=== PATIENT | female | born 1950 | race Caucasian/White ===

== ENCOUNTER 2016-07-29 22:02 | Emergency (ER) | payer OTHER ==
[~2016-07-29] VITALS: Ht 162.6 cm; Wt 95.3 kg
[2016-07-29] MEDS ORDERED: METOPROLOL TAR100 M1 PO (22:05)
[2016-07-29] MEDS ORDERED: ENALAPRIL MALEA20 M1 PO (22:06)
[2016-07-29] MEDS ORDERED: ATORVASTATIN CA40 M1 PO (22:06)
[2016-07-29] MEDS ORDERED: ATORVASTATIN CA10 M1 PO (22:06)
--- NOTE | 2016-07-29 22:20 | ED CARDIAC/CP/PALPITATIONS ---
History of Present Illness General Chief Complaint: Chest Pain Stated Complaint: CHEST PAIN Source: patient, family, old records Exam Limitations: language barrier Vital Signs & Intake/Output Vital Signs & Intake/Output Vital Signs Date Time Temp Pulse Resp B/P Pulse O2 O2 Flow FiO2 Ox Delivery Rate 07/30 0318 97.2 75 18 137/89 97 Room Air 07/30 0059 97.3 76 18 139/90 97 Room Air ED Intake and Output 07/30 0000 07/29 1200 Intake Total Output Total Balance Patient 210 lb Weight Allergies Coded Allergies: Fish Containing Products (FACIAL SWELLING 07/29/16) Reconcile Medications Atorvastatin Calcium 10 MG TABLET 1 TAB PO DAILY BP (Reported) Atorvastatin Calcium 40 MG TABLET 1 TAB PO DAILY CHOLESTEROL (Reported) Enalapril Maleate 20 MG TABLET 1 TAB PO DAILY BP (Reported) Metoprolol Tartrate 100 MG TABLET 1 TAB PO DAILY HEART/BP (Reported) Triage Note: PT TO ED FOR INTERMITTENT CHEST PAIN AND L ARM TINGLING FOR TWO DAYS WELL SOB AT NIGHT WHILE SLEEPING FOR APPROX 6 MONTHS. PT REPORTING LYING DOWN SOMETIMES IMPROVES THE CHEST PAIN BUT UNABLE TO IDENTIFY IF WHAT MAKES PAIN WORSE. DENIES N/V/D, ONLY SOB AT NIGHT "WHEN SLEEPING".ALSO REPORTING INTERMITTENT DIZZINESS NOT ASSOCIATED WITH CP. Triage Nurses Notes Reviewed? yes HPI: Patient is a 65-year-old female presents complaining of intermittent chest pain minutes and resolved. Pain was a sharp sensation no exacerbating or alleviating factors. No known inciting factors. Pain is currently 0 out of 10, last episode was approximately 2 hours ago. Dyspnea with exertion for approximately 2 weeks. Left lower extremity swelling for the past 4 days. Left hand paresthesias intermittently 2 months (ANDRÉS ELENA) Past History Travel History Traveled to [place] past 21 day No Medical History Any Pertinent Medical History? see below for history Neurological: NONE EENT: NONE Cardiovascular: hypertension, HIGH CHOLESTEROL Respiratory: NONE Gastrointestinal: NONE Hepatic: NONE Renal: NONE Musculoskeletal: NONE Psychiatric: NONE Endocrine: NONE Blood Disorders: NONE Cancer(s): BREAST CA Psychosocial History Who do you live with Family Services at Home None What is your primary language Mexican Tobacco Use: Never used ETOH Use: denies use Illicit Drug Use: denies illicit drug use Family History Hx Contributory? Yes (BROTHER AND FATHER CAD) (ANDRÉS ELENA) Surgical History Surgical History: none (HENRY CUEVAS,EUSEBIO Phillips) Review of Systems Review of Systems Constitutional: Denies: chills, fever. EENTM: Reports: no symptoms. Respiratory: Denies: cough. Cardiovascular: Reports: see HPI. GI: Denies: abdominal pain, nausea, vomiting. Genitourinary: Reports: no symptoms. Musculoskeletal: Reports: no symptoms. Skin: Reports: no symptoms. Neurological/Psychological: Reports: no symptoms. Hematologic/Endocrine: Reports: no symptoms. Immunologic/Allergic: Reports: no symptoms. (ANDRÉS ELENA) Physical Exam Physical Exam General Appearance: well developed/nourished, alert, awake Head: atraumatic, normal appearance Eyes: Bilateral: normal appearance, PERRL, EOMI. Ears, Nose, Throat: normal pharynx, normal ENT inspection, hearing grossly normal Neck: normal inspection, supple, full range of motion Respiratory: normal breath sounds, chest non-tender, no respiratory distress, lungs clear Cardiovascular: regular rate/rhythm Peripheral Pulses: 2+ dorsalis pedis (R), 2+ dorsalis pedis (L) Gastrointestinal: soft, non-tender Back: normal inspection, normal range of motion Extremities: normal capillary refill, normal range of motion, NO CALF TENDERNESS. 1+ BILATERAL LOWER EXTREMITY EDEMA. Neurologic/Psych: no motor/sensory deficits, awake, alert, oriented x 3 Skin: intact, normal color, warm/dry Lymphatic: no anterior cervical pradeep (ANDRÉS ELENA) Core Measures ACS in differential dx? No Severe Sepsis Present: No Septic Shock Present: No (HENRY CUEVAS,EUSEBIO Phillips) Progress Differential Diagnosis: AMI, aortic dissection, CHF/pulm edema, costochondritis, myocarditis, pericarditis, pneumonia, pneumothorax, PSVT, pulmonary embolism, PUD/GERD, unstable angina, V-fib/V-Tach, dvt Plan of Care: Orders Procedure Date/time Status TROPONIN LEVEL 07/30 0200 Complete EKG 07/30 199 Active Laboratory Tests 07/30/16 0205: Troponin I < 0.[address] Fontana: obtain 2nd ekg and troponin to rule out ACS 07/29/2016 11:21:16 PM: Discussed results of labs and chest x-ray with the patient and her family member. Patient remained symptom free. Plan for repeat EKG and troponin. (ANDRÉS ELENA) Diagnostic Imaging: Viewed by Me: Radiology Read. Discussed w/RAD: Radiology Read. Radiology Impression: PATIENT: SARA WATKINS PRESENT AGE: 65 PATIENT ACCOUNT NO: [id number] : 49 LOCATION: [facility] ORDERING PHYSICIAN: ANDRÉS JACOBO SERVICE DATE: 07/29/16 EXAM TYPE: RAD - XRY-PORTABLE CHEST XRAY EXAMINATION: CHEST 1 VIEW CLINICAL INFORMATION: Chest pain. COMPARISON: 09/21/2012. TECHNIQUE: An AP view of the chest is provided. FINDINGS: The cardiac silhouette is not enlarged. The mediastinal and hilar contours are unremarkable. There are neither pleural effusions nor pneumothoraces. There are no consolidations. The osseous structures are unremarkable. IMPRESSION: No evidence for acute disease. DICTATED BY: CONSTANZA ARENAS MD DATE/TIME DICTATED:07/29/162251 CELL ASSEMBLY PINNER:[email or web address] DATE/TIME TRANSCRIBED:07/29/162251 CONFIDENTIAL, DO NOT COPY WITHOUT APPROPRIATE AUTHORIZATION. <Electronically signed in Other Vendor System> SIGNED BY: CONSTANZA ARENAS MD 07/29/161 Initial ED EKG: normal sinus rhythm 70 bpm normal axis, normal intervals, nonspecific ST/T-wave abnormalities, no acute changes from previous EKG Prior EKG: unchanged Rhythm Strip: normal sinus rhythm Hand-Off Endorsed To: EUSEBIO FONTANA MD Endorsed Time: 29 Pending: EKG, labs (ANDRÉS ELENA) Departure Departure Disposition: STILL A PATIENT Condition: Stable Clinical Impression Primary Impression: Chest pain Qualifiers: Chest pain type: unspecified Qualified Code: R07.9 - Chest pain, unspecified Referrals: KIMMY REVELES MD (PCP/Family) Additional Instructions: Follow up with Dr. Reveles this week for further evaluation. Call when the office opens for appointment. Return to the ER if chest pain worsening, breathing worsening or worsening of symptoms. Departure Forms: Customer Survey General Discharge Information (ANDRÉS ELENA) PA/UX ARCHITECT Co-Sign Statement Statement: ED Attending supervision documentation- [x] I saw and evaluated the patient. I have also reviewed all the pertinent lab results and diagnostic results. I agree with the findings and the plan of care as documented in the PA's/UX ARCHITECT's documentation. trop neg x 2, ekg benign x 2... pt safe for discharge and will follow up with card punching machine operator. [] I have reviewed the ED Record and agree with the PA's/UX ARCHITECT's documentation. [] Additions or exceptions (if any) to the PAs/UX ARCHITECT's note and plan are summarized below: [] (EUSEBIO FONTANA MD) Critical Care Note Critical Care Note Critical Care Time: non-applicable (EUSEBIO FONTANA MD) Statement: ED Attending supervision documentation- [x] I saw and evaluated the patient. I have also reviewed all the pertinent lab results and diagnostic results. I agree with the findings and the plan of care as documented in the PA's/UX ARCHITECT's documentation. trop neg x 2, ekg benign x 2... pt safe for discharge and will follow up with card punching machine operator. [] I have reviewed the ED Record and agree with the PA's/UX ARCHITECT's documentation. [] Additions or exceptions (if any) to the PAs/UX ARCHITECT's note and plan are summarized below: [] (HENRY CUEVAS,EUSEBIO Phillips) Critical Care Note Critical Care Note Critical Care Time: non-applicable (EUSEBIO FONTANA MD)
[2016-07-29 22:44] LABS: ABSOLUTE BASOPHIL COUNT 0.1 /CUMM (0.0-0.2); ABSOLUTE EOSINOPHIL COUNT 0.2 /CUMM (0.0-0.7); ABSOLUTE GRANULOCYTE CT 4.2 /CUMM (1.4-6.5); ABSOLUTE LYMPH COUNT 3.2 /CUMM (1.2-3.4); ABSOLUTE MONOCYTE COUNT 0.7 /CUMM (0.10-0.60); BASOPHIL % 0.8 % (0.0-2.0); EOSINOPHIL % 2.8 % (0-5); GRANULOCYTE % 50.4 % (42.2-75.2); HEMATOCRIT 43.7 % (37-47); MEAN CORPUSCULAR HGB 29.1 PG (27.0-31.0); MEAN CORPUSCULAR HGB CONC 33.3 G/DL (33.0-37.0); MEAN CORPUSCULAR VOLUME 87.4 FL (81.0-99.0); MEAN PLATELET VOLUME 7.2 FL (7.4-10.4); PLATELET COUNT 215 /CUMM (130-400); RBC DISTRIBUTION WIDTH 12.9 % (11.5-14.5); RED BLOOD CELL CT 4.99 /CUMM (4.20-5.40); WHITE BLOOD CELL COUNT 8.4 /CUMM (4.8-10.8)
--- NOTE | 2016-07-29 23:03 | RADIOLOGY REPORT ---
EXAMINATION: CHEST 1 VIEW CLINICAL INFORMATION: Chest pain. COMPARISON: 09/21/2012. TECHNIQUE: An AP view of the chest is provided. FINDINGS: The cardiac silhouette is not enlarged. The mediastinal and hilar contours are unremarkable. There are neither pleural effusions nor pneumothoraces. There are no consolidations. The osseous structures are unremarkable. IMPRESSION: No evidence for acute disease.
[2016-07-30 03:18] VITALS: BP 137/89
== END 2016-07-30 03:19 ==
LOC: ERH 22:02
PROVIDERS: Pediatrics
DX: R07.89 Other chest pain (principal)
CPT/HCPCS: 93005; 93010